=== PATIENT | male | born 1935 | race Caucasian/White ===

== ENCOUNTER 2018-12-10 20:39 | Emergency (ER) | payer MEDICARE, OTHER ==
[~2018-12-10] VITALS: Ht 167.6 cm; Wt 87.1 kg
--- OUTSIDE RECORDS SUMMARY | 2018-12-10 20:44 | XMS REPORT | Continuity of Care Document ---
Author Author [facility] Organization [facility] Address Unknown Phone Unavailable Allergies There is no data. Medications There is no data. 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 Results Test Result Range CBC WITH DIFF - 05/28/17 10:05 WBC 10.11 10*3/uL 4.30-10.80 RBC 5.52 10*6/uL 4.70-6.10 HGB 13.0 g/dL 14.0-18.0 HCT 43.2 % 42.0-52.0 MCV 78 fL 81-99 MCH 24 pg 26.0-34.0 MCHC 30.1 g/dL 31.0-37.0 PLATELET COUNT 243 10*3/uL 150-400 RDWCV 20.1 % 11.5-14.5 DIFF TYPE AUTOMATED DIFF NEUTROPHIL % 72.3 % 36.0-66.0 LYMPHOCYTE % 13.7 % 24.0-44.0 MONOCYTE % 11.8 % 1.0-10.0 EOSINOPHIL % 1.6 % 0.0-6.0 BASOPHIL % 0.3 % 0.0-2.0 ABS. NEUTROPHILS 7.31 10*3/uL 1.55-7.13 ABS. LYMPHOCYTES 1.39 10*3/uL 1.00-4.80 ABS. MONOCYTES 1.19 10*3/uL 0.40-1.08 ABS. EOSINOPHILS 0.16 10*3/uL 0.00-0.65 ABS. BASOPHILS 0.03 10*3/uL 0.00-0.11 ABSOLUTE NUCLEATED RBC 0.00 10*3/uL 0.00 PERCENT NUCLEATED RBC 0.0 % 0.0 MPV 10.1 fL 9.4-12.4 RDW STANDARD DEVIATION 55.1 fL 35.1-43.9 GRANULOCYTE, IMMATURE, ABSOLUTE 0.0 10*3/uL 0.0-0.1 GRANULOCYTES, IMMATURE, PERCENT 0.3 % 0.0-0.5 BASIC METABOLIC PANEL - 05/28/17 10:56 POTASSIUM 3.7 mmol/L 3.5-5.1 CALCIUM 9.5 mg/dL 8.5-10.0 GLUCOSE 100 mg/dL 80-115 BUN 11 mg/dL 7-18 CREATININE 0.80 mg/dL 0.55-1.30 SODIUM 140 mmol/L 136-145 CHLORIDE 105 mmol/L 98-107 CO2 30 mmol/L - GFR ESTIMATED NOT AFR/AM >60 GFR ESTIMATED IF AFR/AM >60 ANION GAP 5 5-15 URINALYSIS AUTOMATED W MICROSCOPY - 05/28/17 11:06 SPECIMEN CATH CRUMP COLOR YELLOW APPEARANCE CLOUDY CLEAR SPECIFIC GRAVITY 1.011 1.005-1.030 PH, URINE 6.0 5.0-9.0 PROTEIN MODERATE mg/dL NEGATIVE GLUC NEGATIVE mg/dL NEGATIVE KETONES NEGATIVE mg/dL NEGATIVE BILIRUBIN NEGATIVE NEGATIVE BLOOD SMALL NEGATIVE NITRITE POSITIVE NEGATIVE UROBILINOGEN NORMAL mg/dL NORMAL LEUKOCYTE ESTERASE LARGE NEGATIVE WBC'S >100 [HPF] 0-4 RBC'S 16 [HPF] 0-1 MUCUS RARE [LPF] NEGATIVE SQUAMOUS EPITHELIAL CELLS 0 [HPF] 0-1 BACTERIA RARE [HPF] NEGATIVE WBC CLUMPS MANY [LPF] HEMOGLOBIN AND HEMATOCRIT - 05/28/17 12:26 HGB 11.8 g/dL 14.0-18.0 HCT 40.1 % 42.0-52.0 BASIC METABOLIC PANEL - 05/28/17 12:26 POTASSIUM 3.9 mmol/L 3.5-5.1 CALCIUM 9.1 mg/dL 8.5-10.0 GLUCOSE 119 mg/dL 80-115 BUN 11 mg/dL 7-18 CREATININE 0.87 mg/dL 0.55-1.30 SODIUM 139 mmol/L 136-145 CHLORIDE 105 mmol/L 98-107 CO2 32 mmol/L - GFR ESTIMATED NOT AFR/AM >60 GFR ESTIMATED IF AFR/AM >60 ANION GAP 2 5-15 GLUCOSE POCT - 05/28/17 16:20 GLUCOSE BY METER 108 mg/dL 70-115 POC COMMENT SEE NOTES CBC WITH DIFF - 05/29/17 05:19 WBC 9.82 10*3/uL 4.30-10.80 RBC 4.93 10*6/uL 4.70-6.10 HGB 11.6 g/dL 14.0-18.0 HCT 38.9 % 42.0-52.0 MCV 79 fL 81-99 MCH 24 pg 26.0-34.0 MCHC 29.8 g/dL 31.0-37.0 PLATELET COUNT 187 10*3/uL 150-400 RDWCV 19.4 % 11.5-14.5 DIFF TYPE AUTOMATED DIFF NEUTROPHIL % 78.8 % 36.0-66.0 LYMPHOCYTE % 8.9 % 24.0-44.0 MONOCYTE % 11.4 % 1.0-10.0 EOSINOPHIL % 0.3 % 0.0-6.0 BASOPHIL % 0.2 % 0.0-2.0 ABS. NEUTROPHILS 7.74 10*3/uL 1.55-7.13 ABS. LYMPHOCYTES 0.87 10*3/uL 1.00-4.80 ABS. MONOCYTES 1.12 10*3/uL 0.40-1.08 ABS. EOSINOPHILS 0.03 10*3/uL 0.00-0.65 ABS. BASOPHILS 0.02 10*3/uL 0.00-0.11 ABSOLUTE NUCLEATED RBC 0.00 10*3/uL 0.00 PERCENT NUCLEATED RBC 0.0 % 0.0 MPV 9.4 fL 9.4-12.4 RDW STANDARD DEVIATION 55.4 fL 35.1-43.9 GRANULOCYTE, IMMATURE, ABSOLUTE 0.0 10*3/uL 0.0-0.1 GRANULOCYTES, IMMATURE, PERCENT 0.4 % 0.0-0.5 BASIC METABOLIC PANEL - 05/29/17 05:19 POTASSIUM 4.0 mmol/L 3.5-5.1 CALCIUM 8.4 mg/dL 8.5-10.0 GLUCOSE 104 mg/dL 80-115 BUN 12 mg/dL 7-18 CREATININE 0.91 mg/dL 0.55-1.30 SODIUM 139 mmol/L 136-145 CHLORIDE 103 mmol/L 98-107 CO2 26 mmol/L 21-32 GFR ESTIMATED NOT AFR/AM >60 GFR ESTIMATED IF AFR/AM >60 ANION GAP 10 5-15 Encounters ACCT No. Visit Date/Time Discharge Status Pt. Type Provider Facility Loc./Unit Complaint [id number] 05/28/2017 09:07:00 05/29/2017 13:20:00 DIS Inpatient LACI GOODWIN [facility]
--- NOTE | 2018-12-10 21:50 | Diagnostic Imaging Report ---
INDICATION: Dizziness and chest pain. COMPARISON: None available. TECHNIQUE: Single view of the chest was obtained. FINDINGS: The visualized lungs are clear. Please note the posterior lower lobes are poorly evaluated by portable radiography. No pleural effusion or pneumothorax. Heart is normal in size. Left pectoral transvenous pacemaker is in place. IMPRESSION: No acute process by portable radiography. Dictated by: Dictated on workstation # [id number]
--- NOTE | 2018-12-10 22:02 | ED General ---
General Stated Complaint: PT STATES THEY FEEL OFF. 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 Chest pain lasts approximately 3 hours. It is currently resolved. Denies increased shortness of breath, cough, fever chills and sweats. Reports nausea which also has resolved. No nitroglycerin taken prior to ED arrival. Patient states chest pain felt every most recent MRI several years ago. Patient had multiple stents placed at [facility] in [facility]. He sees a compensation adjuster and [place] but has not had a recent stress test in the past 12 months. No other acute symptoms or complaints. Allergies and Home Medications Patient Home Medication List Home Medication List Reviewed: Yes Review of Systems Review of Systems Constitutional: no symptoms reported EENTM: see HPI Respiratory: No dyspnea on exertion, No short of breath Cardiovascular: see HPI, chest pain Gastrointestinal: nausea Musculoskeletal: no symptoms reported Skin: no symptoms reported Psychiatric/Neurological: No Symptoms Reported Hematologic/Lymphatic: No Symptoms Reported Immunological/Allergic: no symptoms reported Past Bqmpnzy-Ypnawz-Djdjuc Hx Past Med/Social Hx: Reviewed Nursing Past Med/Soc Hx Patient Social History Recent Foreign Travel: No Contact w/Someone Who Travel: No Physical Exam Vital Signs Vital Signs - First Documented 12/10/18 21:20 Temp 97.7 Pulse 72 Resp 16 B/P (MAP) 193/85 (121) Capillary Refill : Height, Weight, BMI Height: '" Weight: lbs. oz. kg; BMI Method: General Appearance: No Apparent Distress HEENT: PERRL/EOMI, Pharynx Normal, Other (edentulous) Neck: Normal Inspection, Supple Respiratory: Chest Non Tender, Lungs Clear, Normal Breath Sounds Cardiovascular: No Edema, Other (negative Homans signs.) Back: Normal Inspection Extremity: Normal Capillary Refill Skin: Normal Color Focused Exam Sepsis Stage: Ruled Out Progress/Results/Core Measures Suspected Sepsis SIRS Temperature: Pulse: Respiratory Rate: Laboratory Tests 12/10/18 22:41: White Blood Count 4.4 Blood Pressure / Mean: Laboratory Tests 12/10/18 22:41: Creatinine 0.77, Platelet Count 172, Total Bilirubin 0.3 Results/Orders Lab Results Laboratory Tests Test 12/10/18 22:41 Range/Units White Blood Count 4.4 4.3-11.0 10^3/uL Red Blood Count 4.74 4.35-5.85 10^6/uL Hemoglobin 14.3 13.3-17.7 G/DL Hematocrit 44 40-54 % Mean Corpuscular Volume 92 80-99 FL Mean Corpuscular Hemoglobin 30 25-34 PG Mean Corpuscular Hemoglobin Concent 33 32-36 G/DL Red Cell Distribution Width 14.3 10.0-14.5 % Platelet Count 172 130-400 10^3/uL Mean Platelet Volume 9.5 7.4-10.4 FL Neutrophils (%) (Auto) 59 42-75 % Lymphocytes (%) (Auto) 20 12-44 % Monocytes (%) (Auto) 15 H 0-12 % Eosinophils (%) (Auto) 5 0-10 % Basophils (%) (Auto) 1 0-10 % Neutrophils # (Auto) 2.6 1.8-7.8 X 10^3 Lymphocytes # (Auto) 0.9 L 1.0-4.0 X 10^3 Monocytes # (Auto) 0.7 0.0-1.0 X 10^3 Eosinophils # (Auto) 0.2 0.0-0.3 10^3/uL Basophils # (Auto) 0.0 0.0-0.1 10^3/uL Sodium Level 138 135-145 MMOL/L Potassium Level 3.9 3.6-5.0 MMOL/L Chloride Level 103 98-107 MMOL/L Carbon Dioxide Level 25 21-32 MMOL/L Anion Gap 10 5-14 MMOL/L Blood Urea Nitrogen 10 7-18 MG/DL Creatinine 0.77 0.60-1.30 MG/DL Estimat Glomerular Filtration Rate > 60 BUN/Creatinine Ratio 13 Glucose Level 129 H 70-105 MG/DL Calcium Level 9.2 8.5-10.1 MG/DL Corrected Calcium 9.7 8.5-10.1 MG/DL Total Bilirubin 0.3 0.1-1.0 MG/DL Aspartate Amino Transf (AST/SGOT) 16 5-34 U/L Alanine Aminotransferase (ALT/SGPT) 9 0-55 U/L Alkaline Phosphatase 58 40-136 U/L Troponin T 10 <=15 NG/L Total Protein 6.3 L 6.4-8.2 GM/DL Albumin 3.4 3.2-4.5 GM/DL My Orders Orders - VIOLET SALGUERO DO Cbc With Automated Diff (12/10/18 21:31) Comprehensive Metabolic Panel (12/10/18 21:31) Troponin T (12/10/18 21:31) Chest 1 View Ap/Pa Only (12/10/18 21:31) Vital Signs/I&O 12/10/18 21:20 Temp 97.7 Pulse 72 Resp 16 B/P (MAP) 193/85 (121) Capillary Refill : Progress Note : Time: 23:56 Progress Note Patient remained symptom-free while in the emergency department. Up work is nondiagnostic. Transfer/admission recommended to the or Hospital of patient's choice. Patient initially accepted but then declined. States he is feeling better wishes to go home and [facility]. He verbalizes that I am unable to rule out acute coronary syndrome and other potential life-threatening causes of chest pain and that he is at risk of disability. I discussed this concern with family members who agree to watch him closely and return should he redevelop any symptoms. ECG Initial ECG Impression Date: Dec 10, 2018 Departure Impression Primary Impression: Chest pain Disposition: 01 HOME, SELF-CARE Condition: Stable Departure-Patient Inst. Decision time for Depature: 23:59 Referrals: NO,LOCAL PHYSICIAN (PCP) Primary Care Physician Add. Discharge Instructions: Please folllow up with your local [facility] provider tomorrow for further evaluation. In the meantime if you change your mind regarding hospital admission or your symptoms return return to the ED. VIOLET SALGUERO DO Dec 10, 2018 22:02
[2018-12-10 22:52] LABS: HEMATOCRIT 44 % (40-54); HEMOGLOBIN 14.3 G/DL (13.3-17.7); MEAN CORPUSCULAR HEMOGLOBIN 30 PG (25-34); WHITE BLOOD COUNT 4.4 10^3/uL (4.3-11.0)
[2018-12-10 22:53] LABS: LYMPHOCYTES % (AUTO) 20 % (12-44); MEAN CORPUSCULAR HGB CONC 33 G/DL (32-36); MEAN CORPUSCULAR VOLUME 92 FL (80-99); MEAN PLATELET VOLUME 9.5 FL (7.4-10.4); MONOCYTES % (AUTO) 15 % (0-12); NEUTROPHILS % (AUTO) 59 % (42-75); PLATELET COUNT 172 10^3/uL (130-400); RED CELL DISTRIBUTION WIDTH 14.3 % (10.0-14.5)
[2018-12-10 22:54] LABS: BASOPHILS % (AUTO) 1 % (0-10); EOSINOPHILS # (AUTO) 0.2 10^3/uL (0.0-0.3); EOSINOPHILS % (AUTO) 5 % (0-10); LYMPHOCYTES # (AUTO) 0.9 X 10^3 (1.0-4.0); MONOCYTES # (AUTO) 0.7 X 10^3 (0.0-1.0); NEUTROPHILS # (AUTO) 2.6 X 10^3 (1.8-7.8)
[2018-12-10 23:09] LABS: CARBON DIOXIDE 25 MMOL/L (21-32); CHLORIDE 103 MMOL/L (98-107); POTASSIUM 3.9 MMOL/L (3.6-5.0); SODIUM 138 MMOL/L (135-145)
[2018-12-10 23:10] LABS: ALANINE AMINOTRANSFERASE 9 U/L (0-55); ALBUMIN 3.4 GM/DL (3.2-4.5); ALKALINE PHOSPHATASE 58 U/L (40-136); BILIRUBIN,TOTAL 0.3 MG/DL (0.1-1.0); BUN/CREATININE RATIO 13; CALCIUM 9.2 MG/DL (8.5-10.1); CREATININE SERUM 0.77 MG/DL (0.60-1.30); GFR ESTIMATED > 60; GLUCOSE 129 MG/DL (70-105); TOTAL PROTEIN 6.3 GM/DL (6.4-8.2)
[2018-12-11 00:04] VITALS: BP 159/82
== END 2018-12-11 00:11 | disposition home or self-care (01) ==
LOC: ER FS 20:41
DX: R07.89 Other chest pain (principal); I25.10 Atherosclerotic heart disease of native coronary artery without angina pectoris; I25.2 Old myocardial infarction; Z95.0 Presence of cardiac pacemaker; Z95.5 Presence of coronary angioplasty implant and graft
CPT/HCPCS: 36415; 71045; 80053; 84484; 85025

== ENCOUNTER 2022-11-29 17:26 | Emergency (ER) | payer MEDICARE, OTHER ==
[~2022-11-29] VITALS: Ht 167 cm; Wt 77.2 kg
[2022-11-29] MEDS ORDERED: TRM50T PO (18:10)
--- NOTE | 2022-11-29 18:10 | ED Back Pain ---
General Chief Complaint: Back Problems Stated Complaint: FALL; BACK PAIN Nursing Triage Note: Patient has presented to ER with cc of lower back pain. Patient reports that on Saturday he fell and landed on a large flashlight. He has been taking tylenol for the pain. He has not seen his doctor and came to ER for evaluation. Source of Information: Patient Exam Limitations: No Limitations History of Present Illness Date Seen by Provider: Nov 29, 2022 Time Seen by Provider: 17:00 Initial Comments Patient is an 87-year-old male who presents with low back pain after falling and landing on top of a flashlight 5 days ago. Pain is midline nonradiating and is worse with palpation and rotation and movement. Patient is taking Tylenol with limited improvement. No radicular symptoms or pain. Denies hitting head, headache blurred vision dizziness or acute lower extremity weakness. Patient has limited mobility and is primarily wheelchair bound and is so currently awaiting a hospice consult. Additional history obtained by the patient's daughter. Location: Lumbar Spine, Paraspinous Muscles, T-Spine Timing/Duration: Other Pain/Injury Location: Other Radiation: Other Method of Injury: Other Associated Symptoms: other Allergies and Home Medications Allergies Coded Allergies: No Known Drug Allergies (Unverified , 11/29/22) Patient Home Medication List Home Medication List Reviewed: Yes Tramadol HCl (Tramadol HCl) 50 Mg Tablet, 100 MG PO Q6H PRN for PAIN Prescribed by: VIOLET SALGUERO on 11/29/221810 Review of Systems Constitutional: see HPI EENTM: see HPI Respiratory: see HPI Cardiovascular: see HPI Gastrointestinal: see HPI Genitourinary: see HPI Musculoskeletal: see HPI Skin: see HPI Psychiatric/Neurological: See HPI All Other Systems Reviewed Negative Unless Noted: No Past Xcwdunn-Ozmjmb-Oxqjqr Hx Patient Social History Tobacco Use?: No Use of E-Cig and/or Vaping dev: No Substance use?: No Alcohol Use?: No Physical Exam Vital Signs Vital Signs - First Documented 11/29/22 17:35 Temp 36.4 Pulse 95 Resp 18 B/P (MAP) 110/65 (80) Pulse Ox 100 O2 Delivery Room Air Capillary Refill : Height, Weight, BMI Height: 5'6.00" Weight: 192lbs. oz. 87.025571xz; 27.00 BMI Method:Stated General Appearance: No Apparent Distress, Mild Distress HEENT: PERRL/EOMI Neck: Full Range of Motion, Normal Inspection Cardiovascular: Regular Rate, Rhythm, No Edema Respiratory: Lungs Clear Gastrointestinal: Non Tender, Soft Back: No CVA Tenderness (L), No CVA Tenderness (R); Decreased Range of Motion, Other (Midline lower thoracic/lumbar tenderness to palpation) Neurologic/Psychiatric: Oriented x3, No Motor/Sensory Deficits Lymphatic: No Adenopathy Progress/Results/Core Measures Results/Orders My Orders Orders - VIOLET SALGUERO DO Lumbar Spine 2 Or 3 View (11/29/22 17:42) Thoracic Spine 2 View Only (11/29/22 17:42) Oxycodone/Apap 5/325mg Tablet (Percocet (11/29/22 18:30) Medications Given in ED Current Medications Medications Dose Ordered Sig/Bela Route Start Time Stop Time Status Last Admin Dose Admin Oxycodone/ Acetaminophen 1 tab ONCE ONCE PO 11/29/22 18:30 11/29/22 18:31 DC 11/29/22 18:33 1 TAB Vital Signs/I&O 11/29/22 17:35 Temp 36.4 Pulse 95 Resp 18 B/P (MAP) 110/65 (80) Pulse Ox 100 O2 Delivery Room Air Blood Pressure Mean: 80 Departure Communication (Admissions) X-ray lumbar/thoracic series: No acute findings per radiology report. Lower mechanical back pain after injury several days ago. No midline step-off or obvious acute findings on x-ray. Pain addressed. Recommendations are supportive care with PCP follow-up. Return precautions reviewed. Patient and family member verbalized understanding and agreement with discharge instructions prior to departure. Impression Primary Impression: Thoracolumbar back pain Disposition: 01 HOME, SELF-CARE Condition: Stable Departure-Patient Inst. Decision time for Depature: 18:10 Referrals: NO,LOCAL PHYSICIAN (PCP/Family) Primary Care Physician Patient Instructions: Low Back Pain in Adults Add. Discharge Instructions: You were evaluated in the emergency department for a fall resulting in low back pain and injury. X-ray were performed and do not show of an obvious of fracture. All discharge instructions reviewed with patient and/or family. Voiced understanding. Scripts Cyclobenzaprine HCl (Cyclobenzaprine HCl) 10 Mg Tablet 10 MG PO BID, #14 TAB Prov: VIOLET SALGUERO DO 11/29/22 Tramadol HCl (Tramadol HCl) 50 Mg Tablet 100 MG PO Q6H PRN for PAIN for 3 Days, #12 TAB 0 Refills Prov: VIOLET SALGUERO DO 11/29/22 VIOLET SALGUERO DO Nov 29, 2022 18:09
[2022-11-29] MEDS ORDERED: oxyCODONE/APAP 5/325MG (PERCOCET 5) TABLET PO ONE (18:30)
--- NOTE | 2022-11-29 18:31 | Diagnostic Imaging Report ---
EXAM: Thoracic spine 2 view only INDICATION: Back pain. Fall. COMPARISON: Chest radiograph 12/10/2018. FINDINGS: Mild anterior wedging of a few lower thoracic vertebral bodies appears chronic. Moderate lower thoracic osteophyte formation. Vertebroplasty changes in the L1 vertebral body. Partially visualized cardiac pacer. Surgical clips in the upper abdomen. IMPRESSION: Mild anterior wedging of a few lower thoracic vertebral bodies is most likely chronic. However, this is technically age indeterminate and could be better investigated with MRI. Dictated by: Dictated on workstation # [id number]
--- NOTE | 2022-11-29 18:33 | Diagnostic Imaging Report ---
INDICATION: Back pain. COMPARISON: None. FINDINGS: There is kyphoplasty cement within L4 and L1. Slight concavity to the L2 superior endplate of uncertain acuity. No lucent fracture line found. There is no listhesis. There is mild spondylosis. IMPRESSION: Treated fractures at L1 and L4. Slight endplate concavity at L2 of uncertain acuity but radiographically favored to be chronic. We are limited by no priors. No acute appearing abnormality is apparent. Dictated by: Dictated on workstation # [id number]
[2022-11-29] MEDS ORDERED: CYCL10TA25 PO (18:53)
[2022-11-29 18:55] VITALS: BP 110/65
== END 2022-11-29 18:56 | disposition home or self-care (01) ==
LOC: EDUNIT# 17:26 → ER FS 17:28
DX: M54.50 Low back pain, unspecified (principal); M54.6 Pain in thoracic spine; W18.30XA Fall on same level, unspecified, initial encounter
CPT/HCPCS: 72070; 72100